=== PATIENT | male | born 1955 | race Caucasian/White ===

== ENCOUNTER 2023-01-28 19:47 | Inpatient (IN) | payer MEDICARE, BC ==
[2023-01-28] MEDS ORDERED: Ondansetron PF 4 MG/2 ML Vial ONE (21:39)
[2023-01-28] MEDS ORDERED: Morphine 4 MG/ML VIAL ONE (21:39)
[2023-01-29] MEDS ORDERED: fentaNYL 50 mcg/mL 1 mL Vial ONE (01:40)
[2023-01-29 02:25] LABS: #Basophils 0.1 thou/uL (0.0-0.2); #Eosinphils 0.5 thou/uL (0.0-0.7); %Basophils 0.6 % (0.0-1.0); %Eosinophils 4.8 % (0.0-10.0); %Lymphocytes 32.2 % (21.0-51.0); %Monocytes 10.1 % (0.0-10.0); %Neutrophils 52.1 % (42.0-75.0); Hematocrit 48.4 % (42.0-52.0); Hemoglobin 15.8 g/dL (14.0-18.0); Mean Corpuscular HGB CONC 32.6 g/dL (32.0-36.0); Mean Corpuscular Hemoglobin 30.4 pg (27.0-31.0); Mean Corpuscular Volume 93.3 fl (78.0-98.0); Mean Platelet Volume 10.4 fL (7.4-10.4); Platelet Count 178 10x3/uL (130-400); RBC Distribution Width 14.4 % (11.5-14.5); Red Blood Cell (RBC) Count 5.19 mill/uL (4.70-6.10); White Blood Cell (WBC) Count 9.7 10x3/uL (4.8-10.8)
[2023-01-29] MEDS ORDERED: Ondansetron ODT 4 MG TAB SL PRN (02:45)
[2023-01-29] MEDS ORDERED: Sodium Chloride 0.9% 1,000 ML IV SCH (02:45)
[2023-01-29] MEDS ORDERED: Ondansetron PF 4 MG/2 ML Vial IVP PRN (02:45)
[2023-01-29 02:46] LABS: ALT (SGPT) 20 U/L (8-55); AST (SGOT) 16 U/L (5-34); Albumin 3.8 g/dL (3.4-4.8); Alkaline Phosphatase 102 U/L (40-110); Anion Gap 15 mmol/L (10-20); BUN (Urea Nitrogen) 20 mg/dL (8.4-25.7); Bilirubin, Total 0.9 mg/dL (0.2-1.2); Calc. Creatinine Clearance 0 mL/min (70-130); Calcium 8.9 mg/dL (7.8-10.44); Carbon Dioxide 22 mmol/L (23-31); Chloride 107 mmol/L (98-107); Estimated GFR 100; Globulin 3.2 g/dL (2.4-3.5); Glucose 113 mg/dL (80-115); Potassium 4.1 mmol/L (3.5-5.1); Sodium 140 mmol/L (136-145)
[2023-01-29 02:53] VITALS: BMI 43.8
[2023-01-29] MEDS: fentaNYL 50 mcg/mL 1 mL Vial SLOW IVP PRN ×3 (05:10→13:44)
[2023-01-29] MEDS ORDERED: HYDROcodone/Acetaminophen 5/325 mg Tablet PO PRN (08:25)
[2023-01-29] MEDS ORDERED: traMADol HCl 50 MG TAB PO PRN (08:25)
[2023-01-29] MEDS: Aspirin 81 mg Enteric Coated Tablet PO SCH ×2 (08:58→21:38)
[2023-01-29] MEDS: tiZANidine HCl 4 MG TAB PO PRN (13:02)
[2023-01-29] MEDS: HYDROcodone/Acetaminophen 10/325 mg Tablet PO PRN (21:28)
[2023-01-30] MEDS: HYDROcodone/Acetaminophen 10/325 mg Tablet PO PRN ×4 (06:28→18:47)
[2023-01-30] MEDS ORDERED: METFORMIN HCL PO SCH (09:00)
[2023-01-30] MEDS ORDERED: LINAGLIPTIN PO SCH (09:00)
[2023-01-30] MEDS ORDERED: Non-Formulary Item 1 EACH (Losartan Potassium [Losartan Potassium] 100 MG Tablet) PO SCH (09:00)
[2023-01-30] MEDS ORDERED: Non-Formulary Item 1 EACH (Dulaglutide [Trulicity] 1.5 MG/0.5 ML Pen.Injctr) SC SCH (09:00)
[2023-01-30] MEDS ORDERED: Non-Formulary Item 1 EACH (Insulin Degludec [Tresiba Flextouch U-100] 100 UNIT/ML Insuln. SC SCH (09:00)
[2023-01-30] MEDS ORDERED: [UNRECOGNIZED DRUG - OTHER] PO SCH (09:00)
[2023-01-30] MEDS: Ezetimibe 10 MG TAB PO SCH (09:38)
[2023-01-30] MEDS: Losartan 25 MG TAB PO SCH (09:39)
[2023-01-30] MEDS: Insulin Glargine 30 UNITS/0.3 ML VIAL SC SCH (09:39)
[2023-01-30] MEDS: Empagliflozin 25 MG TAB PO SCH (09:40)
[2023-01-30] MEDS: tiZANidine HCl 4 MG TAB PO PRN (14:53)
[2023-01-31] MEDS: HYDROcodone/Acetaminophen 10/325 mg Tablet PO PRN ×4 (02:54→19:44)
[2023-01-31] MEDS: tiZANidine HCl 4 MG TAB PO PRN (02:54)
[2023-01-31] MEDS: Insulin Glargine 30 UNITS/0.3 ML VIAL SC SCH (08:53)
[2023-01-31] MEDS: Empagliflozin 25 MG TAB PO SCH (08:54)
[2023-01-31] MEDS: Losartan 25 MG TAB PO SCH (08:54)
[2023-01-31] MEDS: Ezetimibe 10 MG TAB PO SCH (08:54)
[2023-01-31] MEDS: Senokot S 8.6-50 MG TAB PO SCH (19:44)
[2023-02-01] MEDS: HYDROcodone/Acetaminophen 10/325 mg Tablet PO PRN ×5 (00:19→23:08)
[2023-02-01] MEDS: Empagliflozin 25 MG TAB PO SCH (08:09)
[2023-02-01] MEDS: Losartan 25 MG TAB PO SCH (08:09)
[2023-02-01] MEDS: Ezetimibe 10 MG TAB PO SCH (08:09)
[2023-02-01] MEDS: Senokot S 8.6-50 MG TAB PO SCH ×2 (08:10→20:06)
[2023-02-01] MEDS: Insulin Glargine 30 UNITS/0.3 ML VIAL SC SCH (08:10)
[2023-02-01] MEDS: tiZANidine HCl 4 MG TAB PO PRN (11:24)
[2023-02-02] MEDS: Empagliflozin 25 MG TAB PO SCH (08:23)
[2023-02-02] MEDS: Senokot S 8.6-50 MG TAB PO SCH ×2 (08:24→20:24)
[2023-02-02] MEDS: Ezetimibe 10 MG TAB PO SCH (08:24)
[2023-02-02] MEDS: Losartan 25 MG TAB PO SCH (08:24)
[2023-02-02] MEDS: Insulin Glargine 30 UNITS/0.3 ML VIAL SC SCH (08:24)
[2023-02-02] MEDS: HYDROcodone/Acetaminophen 10/325 mg Tablet PO PRN ×4 (08:29→21:35)
[2023-02-02] MEDS: tiZANidine HCl 4 MG TAB PO PRN (11:14)
[2023-02-03] MEDS: HYDROcodone/Acetaminophen 10/325 mg Tablet PO PRN ×5 (03:24→22:02)
[2023-02-03] MEDS: tiZANidine HCl 4 MG TAB PO PRN ×2 (05:21→17:17)
[2023-02-03] MEDS: Losartan 25 MG TAB PO SCH (08:33)
[2023-02-03] MEDS: Insulin Glargine 30 UNITS/0.3 ML VIAL SC SCH (08:35)
[2023-02-03] MEDS: Senokot S 8.6-50 MG TAB PO SCH ×2 (08:35→20:38)
[2023-02-03] MEDS: Ezetimibe 10 MG TAB PO SCH (08:35)
[2023-02-03] MEDS: Empagliflozin 25 MG TAB PO SCH (08:35)
[2023-02-04] MEDS: HYDROcodone/Acetaminophen 10/325 mg Tablet PO PRN ×5 (01:56→19:51)
[2023-02-04] MEDS: tiZANidine HCl 4 MG TAB PO PRN ×2 (07:44→22:52)
[2023-02-04] MEDS ORDERED: CEFAZOLIN 2 GM in Sodium Chloride 0.9% 100 ML IVPB SCH (09:30)
[2023-02-04] MEDS: Insulin Glargine 30 UNITS/0.3 ML VIAL SC SCH (09:58)
[2023-02-04] MEDS: Losartan 25 MG TAB PO SCH (09:59)
[2023-02-04] MEDS: Ezetimibe 10 MG TAB PO SCH (10:00)
[2023-02-04] MEDS: Senokot S 8.6-50 MG TAB PO SCH ×2 (10:01→19:50)
[2023-02-04] MEDS: Empagliflozin 25 MG TAB PO SCH (10:01)
[2023-02-05] MEDS: HYDROcodone/Acetaminophen 10/325 mg Tablet PO PRN ×2 (04:09→20:48)
[2023-02-05 06:22] LABS: #Eosinphils 0.3 thou/uL (0.0-0.7); #Monocytes 1.3 thou/uL (0.11-0.59); %Basophils 0.4 % (0.0-1.0); %Eosinophils 3.2 % (0.0-10.0); %Lymphocytes 18.2 % (21.0-51.0); %Monocytes 13.5 % (0.0-10.0); %Neutrophils 64.4 % (42.0-75.0); Hematocrit 48.7 % (42.0-52.0); Mean Corpuscular HGB CONC 32.9 g/dL (32.0-36.0); Mean Corpuscular Hemoglobin 30.7 pg (27.0-31.0); Mean Corpuscular Volume 93.5 fl (78.0-98.0); Mean Platelet Volume 10.5 fL (7.4-10.4); Platelet Count 223 10x3/uL (130-400); RBC Distribution Width 13.7 % (11.5-14.5); Red Blood Cell (RBC) Count 5.21 mill/uL (4.70-6.10); White Blood Cell (WBC) Count 9.3 10x3/uL (4.8-10.8)
[2023-02-05 06:48] LABS: Anion Gap 16 mmol/L (10-20); BUN (Urea Nitrogen) 31 mg/dL (8.4-25.7); Calc. Creatinine Clearance 148 mL/min (70-130); Calcium 10.1 mg/dL (7.8-10.44); Carbon Dioxide 25 mmol/L (23-31); Chloride 101 mmol/L (98-107); Estimated GFR 89; Glucose 112 mg/dL (80-115); Potassium 4.2 mmol/L (3.5-5.1); Sodium 138 mmol/L (136-145)
[2023-02-05] MEDS ORDERED: Midazolam HCl 2 mg/2 ml Vial ONE (08:07)
[2023-02-05] MEDS ORDERED: Bupivacaine PF 0.5% 30 ML VIAL ONE ×2 (08:07→09:35)
[2023-02-05] MEDS ORDERED: fentaNYL 50 mcg/mL 1 mL Vial ONE (08:07)
[2023-02-05] MEDS ORDERED: Promethazine HCl 25 MG/ML VIAL IM PRN ×3 (08:31→11:39)
[2023-02-05] MEDS ORDERED: Ondansetron HCl/PF 4 MG/2 ML Vial IVP PRN ×2 (08:31→11:39)
[2023-02-05] MEDS: Vancomycin (BATCH) 1.5 GM in Premix 1 BAG IVPB SCH ×2 (08:44→20:48)
[2023-02-05] MEDS ORDERED: Acetaminophen 325 MG TAB PO PRN (09:53)
[2023-02-05] MEDS ORDERED: Ondansetron PF 4 MG/2 ML Vial IVP PRN (09:53)
[2023-02-05] MEDS ORDERED: diphenhydrAMINE 25 MG CAP PO PRN (09:53)
[2023-02-05] MEDS ORDERED: Zolpidem Tartrate 5 MG TAB PO PRN (09:53)
[2023-02-05] MEDS ORDERED: PROPOFOL 40 ML ONE ×2 (10:07→12:01)
[2023-02-05] MEDS ORDERED: fentaNYL PF 100 MCG/2 ML SYRINGE ONE (10:10)
[2023-02-05] MEDS ORDERED: PROPOFOL 20 ML ONE ×2 (10:14→11:14)
[2023-02-05] MEDS ORDERED: PHENYLEPHRINE-NS 100 MCG/ML 10 ML SYRINGE ONE ×3 (10:17→11:17)
[2023-02-05] MEDS ORDERED: Bupivacaine HCl 0.5%/Epinephrine 1:200,000/PF 30 ml Vial ONE (10:17)
[2023-02-05] MEDS ORDERED: PROPOFOL 200 MG/20 ML VIAL ONE (10:17)
[2023-02-05] MEDS ORDERED: HYDROmorphone 2 MG/ML VIAL SLOW IVP PRN (11:39)
[2023-02-05] MEDS ORDERED: Sterile Water 10 ML ONE (11:47)
[2023-02-05] MEDS ORDERED: Vasopressin 20 UNITS/ML VIAL ONE (11:47)
[2023-02-05] MEDS ORDERED: CEFAZOLIN 2 GM in Sodium Chloride 0.9% 100 ML IVPB SCH (14:00)
[2023-02-05] MEDS ORDERED: Vancomycin 1 GM VIAL ONE (14:53)
[2023-02-05] MEDS ORDERED: Tobramycin Sulfate 1.2 GM VIAL ONE (14:53)
[2023-02-05] MEDS: fentaNYL 50 mcg/mL 1 mL Vial SLOW IVP PRN (18:00)
[2023-02-05] MEDS: Cefepime 2 GM in Sodium Chloride 0.9% 100 ML IVPB SCH (18:02)
[2023-02-05] MEDS: Insulin Glargine 30 UNITS/0.3 ML VIAL SC SCH (18:55)
[2023-02-05] MEDS: Ezetimibe 10 MG TAB PO SCH (18:55)
[2023-02-05] MEDS: Losartan 25 MG TAB PO SCH (18:55)
[2023-02-05] MEDS: Empagliflozin 25 MG TAB PO SCH (18:55)
[2023-02-05] MEDS: Senokot S 8.6-50 MG TAB PO SCH ×2 (19:26→20:48)
[2023-02-05] MEDS: Aspirin 81 mg Enteric Coated Tablet PO SCH (20:47)
[2023-02-05] MEDS: Ferrous Gluconate 324 MG TAB PO SCH (20:47)
[2023-02-05] MEDS ORDERED: Vancomycin 2 GM in Sodium Chloride 0.9% 250 ML 250 ML IVPB SCH (21:00)
[2023-02-06] MEDS: HYDROcodone/Acetaminophen 10/325 mg Tablet PO PRN ×3 (02:44→18:22)
[2023-02-06] MEDS: Cefepime 2 GM in Sodium Chloride 0.9% 100 ML IVPB SCH ×2 (05:28→18:22)
[2023-02-06 06:13] LABS: Mean Corpuscular HGB CONC 32.3 g/dL (32.0-36.0); Mean Corpuscular Hemoglobin 30.3 pg (27.0-31.0); Mean Corpuscular Volume 93.9 fl (78.0-98.0); Mean Platelet Volume 10.4 fL (7.4-10.4); Platelet Count 200 10x3/uL (130-400); RBC Distribution Width 13.7 % (11.5-14.5); Red Blood Cell (RBC) Count 4.26 mill/uL (4.70-6.10); White Blood Cell (WBC) Count 9.1 10x3/uL (4.8-10.8)
[2023-02-06 06:14] LABS: Hemoglobin 12.9 g/dL (14.0-18.0)
[2023-02-06] MEDS: Aspirin 81 mg Enteric Coated Tablet PO SCH (08:52)
[2023-02-06] MEDS: Losartan 25 MG TAB PO SCH (08:53)
[2023-02-06] MEDS: Multivitamin W/ Minerals 1 TAB PO SCH (08:53)
[2023-02-06] MEDS: Ezetimibe 10 MG TAB PO SCH (08:53)
[2023-02-06] MEDS: Empagliflozin 25 MG TAB PO SCH (08:53)
[2023-02-06] MEDS: Insulin Glargine 30 UNITS/0.3 ML VIAL SC SCH (08:54)
[2023-02-06] MEDS: Ferrous Gluconate 324 MG TAB PO SCH ×2 (08:54→20:58)
[2023-02-06] MEDS: Senokot S 8.6-50 MG TAB PO SCH ×2 (08:54→20:58)
[2023-02-06] MEDS: Vancomycin (BATCH) 1.5 GM in Premix 1 BAG IVPB SCH ×2 (10:27→21:41)
[2023-02-06] MEDS: tiZANidine HCl 4 MG TAB PO PRN (20:58)
[2023-02-06 20:59] LABS: Vancomycin, Trough 14.6 ug/mL
[2023-02-07] MEDS: Cefepime 2 GM in Sodium Chloride 0.9% 100 ML IVPB SCH ×2 (06:03→17:14)
[2023-02-07] MEDS: HYDROcodone/Acetaminophen 10/325 mg Tablet PO PRN ×3 (06:03→19:58)
[2023-02-07 06:22] LABS: Hematocrit 36.2 % (42.0-52.0); Hemoglobin 11.8 g/dL (14.0-18.0); Mean Corpuscular HGB CONC 32.6 g/dL (32.0-36.0); Mean Corpuscular Hemoglobin 30.6 pg (27.0-31.0); Mean Corpuscular Volume 93.8 fl (78.0-98.0); Mean Platelet Volume 10.3 fL (7.4-10.4); Platelet Count 195 10x3/uL (130-400); RBC Distribution Width 13.8 % (11.5-14.5); Red Blood Cell (RBC) Count 3.86 mill/uL (4.70-6.10); White Blood Cell (WBC) Count 10.1 10x3/uL (4.8-10.8)
[2023-02-07] MEDS: Vancomycin (BATCH) 1.5 GM in Premix 1 BAG IVPB SCH ×2 (09:20→20:36)
[2023-02-07] MEDS: Insulin Glargine 30 UNITS/0.3 ML VIAL SC SCH (09:21)
[2023-02-07] MEDS: Senokot S 8.6-50 MG TAB PO SCH ×2 (09:22→20:38)
[2023-02-07] MEDS: Multivitamin W/ Minerals 1 TAB PO SCH (09:22)
[2023-02-07] MEDS: Empagliflozin 25 MG TAB PO SCH (09:23)
[2023-02-07] MEDS: Ferrous Gluconate 324 MG TAB PO SCH ×2 (09:23→20:38)
[2023-02-07] MEDS: Ezetimibe 10 MG TAB PO SCH (09:23)
[2023-02-07] MEDS: Losartan 25 MG TAB PO SCH (09:23)
[2023-02-07] MEDS: tiZANidine HCl 4 MG TAB PO PRN (20:37)
[2023-02-07] MEDS: Aspirin 81 mg Enteric Coated Tablet PO SCH (20:38)
[2023-02-08] MEDS: Cefepime 2 GM in Sodium Chloride 0.9% 100 ML IVPB SCH ×2 (05:58→18:01)
[2023-02-08] MEDS: Multivitamin W/ Minerals 1 TAB PO SCH (09:01)
[2023-02-08] MEDS: Insulin Glargine 30 UNITS/0.3 ML VIAL SC SCH (09:02)
[2023-02-08] MEDS: Aspirin 81 mg Enteric Coated Tablet PO SCH ×2 (09:02→20:33)
[2023-02-08] MEDS: Ezetimibe 10 MG TAB PO SCH (09:02)
[2023-02-08] MEDS: Losartan 25 MG TAB PO SCH (09:03)
[2023-02-08] MEDS: Ferrous Gluconate 324 MG TAB PO SCH ×2 (09:03→20:33)
[2023-02-08] MEDS: Senokot S 8.6-50 MG TAB PO SCH ×2 (09:03→20:34)
[2023-02-08] MEDS: Empagliflozin 25 MG TAB PO SCH (09:03)
[2023-02-08] MEDS: Vancomycin (BATCH) 1.5 GM in Premix 1 BAG IVPB SCH ×2 (09:04→21:59)
[2023-02-08] MEDS: HYDROcodone/Acetaminophen 10/325 mg Tablet PO PRN ×2 (09:49→18:15)
[2023-02-08 10:44] LABS: Reference Lab Name LABCORP
[2023-02-08 11:36] LABS: Vancomycin, Trough 22.6 ug/mL
[2023-02-08] MEDS: tiZANidine HCl 4 MG TAB PO PRN (20:33)
[2023-02-08] MEDS ORDERED: Vancomycin (BATCH) 1.5 GM in Premix 1 BAG IVPB SCH (21:00)
[2023-02-08 21:07] LABS: Vancomycin, Trough 14.8 ug/mL
[2023-02-09] MEDS: HYDROcodone/Acetaminophen 10/325 mg Tablet PO PRN ×3 (04:50→20:35)
[2023-02-09] MEDS: Cefepime 2 GM in Sodium Chloride 0.9% 100 ML IVPB SCH ×2 (05:55→17:11)
[2023-02-09] MEDS: Vancomycin (BATCH) 1.5 GM in Premix 1 BAG IVPB SCH ×2 (08:44→21:21)
[2023-02-09] MEDS: Losartan 25 MG TAB PO SCH (08:45)
[2023-02-09] MEDS: Multivitamin W/ Minerals 1 TAB PO SCH (08:46)
[2023-02-09] MEDS: Ferrous Gluconate 324 MG TAB PO SCH ×2 (08:46→20:35)
[2023-02-09] MEDS: Ezetimibe 10 MG TAB PO SCH (08:46)
[2023-02-09] MEDS: Empagliflozin 25 MG TAB PO SCH (08:46)
[2023-02-09] MEDS: Aspirin 81 mg Enteric Coated Tablet PO SCH ×2 (08:46→20:35)
[2023-02-09] MEDS: Senokot S 8.6-50 MG TAB PO SCH ×2 (08:46→20:35)
[2023-02-09] MEDS: Insulin Glargine 30 UNITS/0.3 ML VIAL SC SCH (08:47)
[2023-02-10] MEDS: Cefepime 2 GM in Sodium Chloride 0.9% 100 ML IVPB SCH ×2 (05:37→18:31)
[2023-02-10] MEDS: HYDROcodone/Acetaminophen 10/325 mg Tablet PO PRN ×3 (06:14→20:24)
[2023-02-10] MEDS: tiZANidine HCl 4 MG TAB PO PRN ×2 (09:27→23:22)
[2023-02-10] MEDS: Vancomycin (BATCH) 1.5 GM in Premix 1 BAG IVPB SCH ×2 (09:27→23:23)
[2023-02-10] MEDS: Senokot S 8.6-50 MG TAB PO SCH ×2 (09:28→20:24)
[2023-02-10] MEDS: Ezetimibe 10 MG TAB PO SCH (09:28)
[2023-02-10] MEDS: Losartan 25 MG TAB PO SCH (09:29)
[2023-02-10] MEDS: Insulin Glargine 30 UNITS/0.3 ML VIAL SC SCH (09:29)
[2023-02-10] MEDS: Aspirin 81 mg Enteric Coated Tablet PO SCH ×2 (09:29→20:24)
[2023-02-10] MEDS: Multivitamin W/ Minerals 1 TAB PO SCH (09:29)
[2023-02-10] MEDS: Empagliflozin 25 MG TAB PO SCH (09:29)
[2023-02-10 09:30] LABS: Vancomycin, Trough 15.3 ug/mL
[2023-02-10] MEDS: Ferrous Gluconate 324 MG TAB PO SCH ×2 (09:30→20:24)
[2023-02-11] MEDS: HYDROcodone/Acetaminophen 10/325 mg Tablet PO PRN ×3 (05:35→16:55)
[2023-02-11] MEDS: Cefepime 2 GM in Sodium Chloride 0.9% 100 ML IVPB SCH ×2 (05:35→16:56)
[2023-02-11] MEDS: Insulin Glargine 30 UNITS/0.3 ML VIAL SC SCH (08:34)
[2023-02-11] MEDS: Senokot S 8.6-50 MG TAB PO SCH ×2 (08:34→19:39)
[2023-02-11] MEDS: Multivitamin W/ Minerals 1 TAB PO SCH (08:34)
[2023-02-11] MEDS: Aspirin 81 mg Enteric Coated Tablet PO SCH ×2 (08:34→19:39)
[2023-02-11] MEDS: Losartan 25 MG TAB PO SCH (08:34)
[2023-02-11] MEDS: Empagliflozin 25 MG TAB PO SCH (08:35)
[2023-02-11] MEDS: Ezetimibe 10 MG TAB PO SCH (08:35)
[2023-02-11] MEDS: Vancomycin (BATCH) 1.5 GM in Premix 1 BAG IVPB SCH ×2 (08:35→19:39)
[2023-02-11] MEDS: Ferrous Gluconate 324 MG TAB PO SCH ×2 (08:35→19:39)
[2023-02-12] MEDS: HYDROcodone/Acetaminophen 10/325 mg Tablet PO PRN ×4 (02:34→21:33)
[2023-02-12] MEDS: Cefepime 2 GM in Sodium Chloride 0.9% 100 ML IVPB SCH ×2 (05:51→17:18)
[2023-02-12] MEDS: Insulin Glargine 30 UNITS/0.3 ML VIAL SC SCH (09:30)
[2023-02-12] MEDS: Multivitamin W/ Minerals 1 TAB PO SCH (09:30)
[2023-02-12] MEDS: Ezetimibe 10 MG TAB PO SCH (09:30)
[2023-02-12] MEDS: Losartan 25 MG TAB PO SCH (09:30)
[2023-02-12] MEDS: Aspirin 81 mg Enteric Coated Tablet PO SCH ×2 (09:30→21:32)
[2023-02-12] MEDS: Senokot S 8.6-50 MG TAB PO SCH ×2 (09:30→21:32)
[2023-02-12] MEDS: Ferrous Gluconate 324 MG TAB PO SCH ×2 (09:30→21:32)
[2023-02-12] MEDS: Empagliflozin 25 MG TAB PO SCH (09:30)
[2023-02-12] MEDS: Vancomycin (BATCH) 1.5 GM in Premix 1 BAG IVPB SCH ×2 (09:31→21:32)
[2023-02-12] MEDS: tiZANidine HCl 4 MG TAB PO PRN (21:33)
[2023-02-13] MEDS: Cefepime 2 GM in Sodium Chloride 0.9% 100 ML IVPB SCH ×2 (05:27→17:34)
[2023-02-13] MEDS: Aspirin 81 mg Enteric Coated Tablet PO SCH ×2 (09:08→21:38)
[2023-02-13] MEDS: Multivitamin W/ Minerals 1 TAB PO SCH ×2 (09:08→09:09)
[2023-02-13] MEDS: Senokot S 8.6-50 MG TAB PO SCH ×2 (09:08→21:38)
[2023-02-13] MEDS: Ferrous Gluconate 324 MG TAB PO SCH ×2 (09:09→21:38)
[2023-02-13] MEDS: Losartan 25 MG TAB PO SCH (09:09)
[2023-02-13] MEDS: Insulin Glargine 30 UNITS/0.3 ML VIAL SC SCH (09:09)
[2023-02-13] MEDS: Ezetimibe 10 MG TAB PO SCH (09:09)
[2023-02-13] MEDS: Empagliflozin 25 MG TAB PO SCH (09:09)
[2023-02-13] MEDS: Vancomycin (BATCH) 1.5 GM in Premix 1 BAG IVPB SCH ×2 (09:10→21:37)
[2023-02-13] MEDS: HYDROcodone/Acetaminophen 10/325 mg Tablet PO PRN (10:42)
[2023-02-14] MEDS: Cefepime 2 GM in Sodium Chloride 0.9% 100 ML IVPB SCH (05:55)
[2023-02-14] MEDS: Senokot S 8.6-50 MG TAB PO SCH ×2 (09:04→21:30)
[2023-02-14] MEDS: Losartan 25 MG TAB PO SCH (09:04)
[2023-02-14] MEDS: Ezetimibe 10 MG TAB PO SCH (09:04)
[2023-02-14] MEDS: Aspirin 81 mg Enteric Coated Tablet PO SCH ×2 (09:04→21:30)
[2023-02-14] MEDS: Vancomycin (BATCH) 1.5 GM in Premix 1 BAG IVPB SCH ×2 (09:04→21:29)
[2023-02-14] MEDS: Ferrous Gluconate 324 MG TAB PO SCH ×2 (09:05→21:30)
[2023-02-14] MEDS: Empagliflozin 25 MG TAB PO SCH (09:05)
[2023-02-14] MEDS: Insulin Glargine 30 UNITS/0.3 ML VIAL SC SCH (09:05)
[2023-02-14] MEDS: HYDROcodone/Acetaminophen 10/325 mg Tablet PO PRN ×2 (09:23→21:27)
[2023-02-14] MEDS ORDERED: Rifampin 300 MG CAP PO SCH (12:15)
[2023-02-14] MEDS: cefTRIAXone\\ROCEPHIN 2 GM in Sodium Chloride 0.9% 100 ML IVPB SCH (13:42)
[2023-02-14] MEDS: Rifampin 300 MG CAP PO SCH (21:30)
[2023-02-15] MEDS: Multivitamin W/ Minerals 1 TAB PO SCH (09:08)
[2023-02-15] MEDS: Losartan 25 MG TAB PO SCH (09:08)
[2023-02-15] MEDS: Senokot S 8.6-50 MG TAB PO SCH ×2 (09:08→21:23)
[2023-02-15] MEDS: Aspirin 81 mg Enteric Coated Tablet PO SCH ×2 (09:08→21:22)
[2023-02-15] MEDS: Ezetimibe 10 MG TAB PO SCH (09:09)
[2023-02-15] MEDS: Rifampin 300 MG CAP PO SCH ×2 (09:09→21:23)
[2023-02-15] MEDS: Insulin Glargine 30 UNITS/0.3 ML VIAL SC SCH (09:09)
[2023-02-15] MEDS: Empagliflozin 25 MG TAB PO SCH (09:09)
[2023-02-15] MEDS: Ferrous Gluconate 324 MG TAB PO SCH ×2 (09:09→21:23)
[2023-02-15 09:29] LABS: Vancomycin, Trough 18.1 ug/mL
[2023-02-15] MEDS ORDERED: Vancomycin (BATCH) 1.5 GM in Premix 1 BAG IVPB SCH (10:00)
[2023-02-15] MEDS: HYDROcodone/Acetaminophen 10/325 mg Tablet PO PRN ×2 (10:36→17:57)
[2023-02-15] MEDS: Vancomycin (BATCH) 1.5 GM in Premix 1 BAG IVPB SCH ×2 (10:37→21:23)
[2023-02-15] MEDS: cefTRIAXone\\ROCEPHIN 2 GM in Sodium Chloride 0.9% 100 ML IVPB SCH (13:23)
[2023-02-15] MEDS: tiZANidine HCl 4 MG TAB PO PRN (21:23)
[2023-02-16] MEDS: HYDROcodone/Acetaminophen 10/325 mg Tablet PO PRN ×2 (05:11→13:09)
[2023-02-16] MEDS: Rifampin 300 MG CAP PO SCH (09:20)
[2023-02-16] MEDS: Losartan 25 MG TAB PO SCH (09:20)
[2023-02-16] MEDS: Vancomycin (BATCH) 1.5 GM in Premix 1 BAG IVPB SCH (09:21)
[2023-02-16] MEDS: Ezetimibe 10 MG TAB PO SCH (10:06)
[2023-02-16] MEDS: Multivitamin W/ Minerals 1 TAB PO SCH (10:06)
[2023-02-16] MEDS: Senokot S 8.6-50 MG TAB PO SCH (10:06)
[2023-02-16] MEDS: Ferrous Gluconate 324 MG TAB PO SCH (10:06)
[2023-02-16] MEDS: Empagliflozin 25 MG TAB PO SCH (10:07)
[2023-02-16] MEDS: Aspirin 81 mg Enteric Coated Tablet PO SCH (10:07)
[2023-02-16] MEDS: Insulin Glargine 30 UNITS/0.3 ML VIAL SC SCH (10:07)
[2023-02-16 11:24] VITALS: BP 170/80; TEMP 98.3
[2023-02-16] MEDS ORDERED: Iopamidol-370 76% 500 ML MDV (1 ML CHARGE) ONE (12:00)
[2023-02-16] MEDS: cefTRIAXone\\ROCEPHIN 2 GM in Sodium Chloride 0.9% 100 ML IVPB SCH (13:09)
== END 2023-02-16 14:00 | DRG 467 ==
LOC: ERS 19:47 → SURG A 22:29 → OBSVTOIN 01-30 10:44
PROVIDERS: ADMIT Orthopaedic Surgery; ATTEND Orthopaedic Surgery
PROC: 0SW90JZ Revision of Synthetic Substitute in Right Hip Joint, Open Approach (ICD-10-PCS; principal; 2023-02-05)
PROC: 02HV33Z Insertion of Infusion Device into Superior Vena Cava, Percutaneous Approach (ICD-10-PCS; 2023-02-06)
PROC: B5181ZA Fluoroscopy of Superior Vena Cava using Low Osmolar Contrast, Guidance (ICD-10-PCS; 2023-02-06)
PROC: B548ZZA Ultrasonography of Superior Vena Cava, Guidance (ICD-10-PCS; 2023-02-06)
DX: T84.51XA Infection and inflammatory reaction due to internal right hip prosthesis, initial encounter (principal); Z68.41 Body mass index [BMI] 40.0-44.9, adult; T84.030A Mechanical loosening of internal right hip prosthetic joint, initial encounter; E11.9 Type 2 diabetes mellitus without complications; Z96.643 Presence of artificial hip joint, bilateral; E78.00 Pure hypercholesterolemia, unspecified; Y83.8 Other surgical procedures as the cause of abnormal reaction of the patient, or of later complication, without mention of misadventure at the time of the procedure; L89.619 Pressure ulcer of right heel, unspecified stage; E66.9 Obesity, unspecified; L89.322 Pressure ulcer of left buttock, stage 2; L89.312 Pressure ulcer of right buttock, stage 2; Z90.49 Acquired absence of other specified parts of digestive tract; Z98.890 Other specified postprocedural states; Z88.1 Allergy status to other antibiotic agents; Z88.8 Allergy status to other drugs, medicaments and biological substances
CPT/HCPCS: 36415; 36416; 36569; 72170; 72193; 80048; 80053; 80202; 82565; 85025; 85027; 86140; 87070; 87205; 93005; 96372; 96374; 96375; 96376; 97139; C1713; C1751; C1889; G0378; J0692; J0696; J1650; J1815; J2250; J2270; J2405; J2704; J3010; J3260; J3370; J3490; J7050; Q9967; S0020